=== PATIENT | male | born 1925 | race Caucasian/White ===

== ENCOUNTER 2016-03-20 09:41 | Inpatient (IN) | payer MEDICARE ==
[2016-03-20] MEDS ORDERED: BISACODYL 5 MG TABLET.DR PO PRN (12:40)
[2016-03-20] MEDS ORDERED: NA PHOS,M-B/NA PHOS,DI-BA 133 ML ENEMA RECTAL PRN (12:40)
[2016-03-20] MEDS ORDERED: NALOXONE 0.4 MG/ML 1 ML VIAL IV PRN (12:40)
[2016-03-20] MEDS ORDERED: MELATONIN 3 MG TABLET PO PRN (12:40)
[2016-03-20] MEDS ORDERED: LACTULOSE 20 GM/30 ML CUP PO PRN (12:40)
[2016-03-20 13:16] LABS: Basophils % (A) 0 %; CH 31.8; Eosinophils # (A) 0.1 k/uL (0-0.7); Eosinophils % (A) 0 %; HCT 32.6 % (39.0-53.0); HDW 2.85; HGB 11.1 gm/dL (13.0-17.5); Luc # (Auto) 0.33; Luc % (Auto) 2; Lymphocytes # (A) 0.7 k/uL (1.0-4.8); Lymphocytes % (A) 5 %; MCHC 33.9 g/dL (31.0-37.0); MCV 91.5 fL (80.0-100.0); Mean Platelet Volume 6.5; Monocytes # (A) 0.9 k/uL (0-1.0); Monocytes % (A) 7 %; Neutrophils # (A) 11.7 k/uL (1.3-7.7); Neutrophils % (A) 85 %; RBC 3.57 m/uL (4.30-5.90); RDW 13.3 % (11.5-15.5); WBC 13.6 k/uL (3.8-10.6); WBC (Perox) 14.96
[2016-03-20 13:27] LABS: Phosphorous 3.2 mg/dL (2.5-4.5); Potassium 4.6 mmol/L (3.5-5.1)
[2016-03-20 13:34] LABS: INR 1.1 (<1.1)
[2016-03-20] MEDS: HEPARIN SODIUM,PORCINE/D5W PMX 25,000 UNIT in DEXTROSE/WATER 1 500ML.BAG IV SCH (14:33)
[2016-03-20 15:00] LABS: Appearance,Urine Clear (Clear); Bacteria,Urine Rare /hpf; Bilirubin,Urine Negative (Negative); Glucose,Urine (UA) Negative (Negative); Ketones,Urine Negative (Negative); Leukocyte Esterase,Urine Moderate (Negative); Nitrite,Urine Negative (Negative); Particle Count 947; Protein,Urine 1+ (Negative); RBC,Urine 8 /hpf (0-5); Specific Gravity,Urine 1.011 (1.001-1.035); Squamous Epithelial Cell,Urine <1 /hpf (0-4); UA Billing (MACRO vs. MICRO) MICRO; Urobilinogen,Urine <2.0 mg/dL (<2.0); WBC,Urine 6 /hpf (0-5)
--- NOTE | 2016-03-20 16:33 | CONS ---
DATE OF CONSULTATION: CHIEF COMPLAINT: Not feeling well, atrial fibrillation. This is an 89-year-old gentleman known to me from my outpatient practice who has a history of sepsis with renal failure. He was almost about to go on dialysis, but his renal functions have improved. He went to [facility] primarily with constipation and was found to be in atrial fibrillation, for which he was started on IV heparin and transferred and admitted to [facility]. EKG shows atrial fibrillation with poor R-wave progression and nonspecific ST-T wave changes. Past medical history is significant for: 1. Chronic atrial fibrillation. 2. Chronic renal insufficiency. 3. Hypertension. Current medications include: 1. Flomax. 2. Norvasc 5 daily. 3. Aspirin. 4. Coreg 6.25 b.i.d. 5. Lasix 40 daily. 6. Ultram. 7. Proscar. 8. Fish oil. ALLERGIES: STATINS. FAMILY HISTORY: Negative for premature coronary artery disease. SOCIAL HISTORY: Negative for current smoking, EtOH abuse or drug abuse. REVIEW OF SYSTEMS: HEENT: Unremarkable. CARDIAC: As described above. RESPIRATORY: Negative. GI: Negative. GENITOURINARY: Significant for end-stage renal disease. PSYCHOSOCIAL: Negative. ENDOCRINE: Negative. RHEUMATOLOGIC: Negative. DERMATOLOGY: Negative. CONSTITUTIONAL: Negative. ONCOLOGICAL: Negative. Rest of the system review is not relevant. On exam, afebrile. Heart rate is 85. Blood pressure 166/80. Respiratory rate is 18. Chest exam reveals good air entry bilaterally. Heart exam reveals first and second heart sounds, irregular rhythm, and a systolic murmur at the left lower sternal border. Abdomen is soft. Examination of extremities did not reveal any edema. Peripheral pulses are felt. ASSESSMENT: 1. Chronic atrial fibrillation with controlled ventricular rate. 2. Chronic renal failure. 3. Hypertension. PLAN: Will optimize antihypertensive therapy, obtain a 2-D echo to document his LV function, continue the IV heparin and start him on Coumadin and see how he does and decide on further course of action.
[2016-03-20] MEDS: FAMOTIDINE 20 MG TAB PO SCH (16:59)
[2016-03-20 17:52] LABS: Creatine Kinase 67 U/L (55-170)
[2016-03-20] MEDS ORDERED: WARFARIN 5 MG TAB PO ONE (18:00)
[2016-03-20 18:05] LABS: Creatine Kinase MB 2.1 ng/mL (0.0-2.4); Troponin I <0.012 ng/mL (0.000-0.034)
--- NOTE | 2016-03-20 18:35 | HP ---
DATE OF ADMISSION: CHIEF COMPLAINT: Difficulty in breathing and abdominal pain. HISTORY OF PRESENT ILLNESS: This is an 89-year-old gentleman with history a previous episode of sepsis and perforated viscus in the past; at that time was noted to have myocardial infarction, went into [facility] initially with complaints of urinary retention and abdominal pain. Patient was noted to have urinary retention, as stated above, and a Bloom catheter was inserted thereafter. Patient underwent a CT scan of the abdomen, was noted to have increased fecal material in the gut. On an EKG patient was also noted to have atrial fibrillation with a poor R-wave progression and a mild troponin leak. Patient was thereafter transferred to our hospital after I had a discussion with the admitting physician in [facility]. During the time of my examination period, patient denies having any headaches, blurry vision, muscle weakness, chest pain, difficulty in breathing. Patient only complaints of abdominal pain. Patient apparently underwent manual fecal disimpaction and soapsuds enemas which were not successful and patient ( ) Past medical history includes: 1. Previous history of sepsis. 2. Myocardial infarction. 3. History of hypertension. 4. Dyslipidemia. 5. 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 SURGICAL HISTORY: Complicated abdominal surgery in the past. SOCIAL HISTORY: Remote smoking history. Denies alcohol or illicit drug use. REVIEW OF SYSTEMS: Fourteen-point review of system was done; none pertinent other than above-mentioned in the HPI. FAMILY HISTORY: Not pertinent to the current admission. No history of strokes or myocardial infarction. PHYSICAL EXAMINATION: VITAL SIGNS: Temperature 96.8, heart rate 69, respiratory rate 18, blood pressure 146/76. Saturating 98% on room air. GENERAL APPEARANCE: Alert and oriented x3. No distress. HEAD: Atraumatic, normocephalic. Pupils are equal, round and reactive to light and accommodation. 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 LUNGS: Good air entry. Clear to auscultation. HEART: Irregularly irregular. No murmurs appreciated. ABDOMEN: Soft, nontender. No organomegaly. LOWER EXTREMITIES: No edema appreciated. NEUROLOGIC: No focal motor or sensory deficits noted. LABORATORY DATA: White count 13.6, hemoglobin 11.1, hematocrit 32.6, platelets of 267. Sodium 138, potassium 4.6, chloride 102, bicarb 25. BUN 45, creatinine of 2.08. ASSESSMENT AND PLAN: 1. New-onset atrial fibrillation. 2. Acute urinary retention. 3. Acute on chronic kidney disease; appears to be secondary to dehydration. 4. Constipation. 5. History of myocardial infarction. PLAN: Patient will be started on IV heparin. Consult Cardiology. Medications were reconciled. Patient's BPH medication Flomax will be restarted. Thereafter, a trial of Bloom catheter removal will be attempted tomorrow. Likely it is secondary to significant constipation. There is no other history or symptomatology suggestive of a urinary tract infection; however, if patient's white count increases overnight, will consider placing the patient on antibiotics empirically to cover for Gram-negative organisms. This was discussed with the family. Echocardiogram, 2-D and TSH were also ordered.
[2016-03-21 06:53] LABS: INR 1.2 (<1.1); Partial Thromboplastin Time 93.7 sec (22.0-30.0); Prothrombin Time 11.9 sec (9.0-12.0)
[2016-03-21 07:00] LABS: Basophils % (A) 0 %; CHCM 35.1; Eosinophils # (A) 0.2 k/uL (0-0.7); Eosinophils % (A) 2 %; HCT 30.8 % (39.0-53.0); HDW 2.81; HGB 10.6 gm/dL (13.0-17.5); Luc # (Auto) 0.36; Luc % (Auto) 3; Lymphocytes # (A) 1.1 k/uL (1.0-4.8); Lymphocytes % (A) 11 %; MCH 31.6 pg (25.0-35.0); MCHC 34.6 g/dL (31.0-37.0); MCV 91.5 fL (80.0-100.0); Mean Platelet Volume 6.8; Monocytes # (A) 0.7 k/uL (0-1.0); Monocytes % (A) 7 %; Neutrophils # (A) 7.9 k/uL (1.3-7.7); Neutrophils % (A) 77 %; RBC 3.37 m/uL (4.30-5.90); RDW 13.4 % (11.5-15.5); WBC 10.4 k/uL (3.8-10.6); WBC (Perox) 10.39
[2016-03-21 07:01] LABS: Calcium 8.7 mg/dL (8.4-10.2); Potassium 4.1 mmol/L (3.5-5.1); Total Bilirubin 0.9 mg/dL (0.2-1.3); Total Protein 6.5 g/dL (6.3-8.2)
[2016-03-21] MEDS: amLODIPine 5 MG TAB PO SCH (09:51)
[2016-03-21] MEDS: FAMOTIDINE 20 MG TAB PO SCH (09:51)
[2016-03-21] MEDS: TAMSULOSIN 0.4 MG CAP.ER.24H PO SCH (09:52)
--- NOTE | 2016-03-21 10:28 | ECHOF ---
Referral Reason:atrial fibrillation MEASUREMENTS -------- HEIGHT: 180.3 cm WEIGHT: 66.7 kg BP: 166/81 RVIDd: 3.4 cm (< 3.3) IVSd: 1.1 cm (0.6 - 1.1) LVIDd: 4.9 cm (3.9 - 5.3) LVPWd: 1.3 cm (0.6 - 1.1) IVSs: 1.6 cm LVIDs: 3.8 cm LVPWs: 1.7 cm LA Diam: 3.5 cm (2.7 - 3.8) LAESV Index (A-L): 18.82 ml/m Ao Diam: 3.9 cm (2.0 - 3.7) AV Cusp: 2.3 cm (1.5 - 2.6) MV EXCURSION: 16.659 mm (> 18.000) MV EF SLOPE: 99 mm/s (70 - 150) EPSS: 1.3 cm MV E Madhu: 0.61 m/s MV DecT: 325 ms MV A Madhu: 0.86 m/s MV E/A Ratio: 0.71 AR PHT: 1290 ms FINDINGS -------- This was a technically adequate study. The left ventricular size is normal. There is mild concentric left ventricular hypertrophy. Overall left ventricular systolic function is mildly impaired with, an EF between 45 - 50 %. The right ventricle is mildly enlarged. Normal LA size by volume 22+/-6 ml/m2. The right atrium is normal in size. Aortic valve is trileaflet and is mildly thickened. There is mild aortic regurgitation. Mild mitral annular calcification present. Mild mitral regurgitation is present. The tricuspid valve appears structurally normal. No regurgitation noted The pulmonic valve was not well visualized. The aortic root is dilated measuring 3.9cm. There is no pericardial effusion. CONCLUSIONS -------- 1. This was a technically adequate study. 2. Mild mitral annular calcification present. 3. Mild mitral regurgitation is present. 4. The tricuspid valve appears structurally normal. 5. The pulmonic valve was not well visualized. 6. The aortic root is dilated measuring 3.9cm. 7. There is no pericardial effusion. 8. The left ventricular size is normal. 9. There is mild concentric left ventricular hypertrophy. 10. Overall left ventricular systolic function is mildly impaired with, an EF between 45 - 50 %. 11. The right ventricle is mildly enlarged. 12. Normal LA size by volume 22+/-6 ml/m2. 13. The right atrium is normal in size. 14. Aortic valve is trileaflet and is mildly thickened. 15. There is mild aortic regurgitation. PHONE MANAGER: Neelam Johnson RDCS
--- NOTE | 2016-03-21 14:21 | P.PN ---
Subjective This is a 89-year-old gentleman that is admitted to the hospital from [facility] due to complaints of abdominal pain. Patient was noted to have significant stool retention. Patient failed subset enemas and manual disimpaction. Patient was also noted to be in new onset atrial fibrillation at the other hospital and transferred here for ongoing care. Patient also was noted to have urinary retention which was attribute it to abdominal distention for mild bowel. Patient does have a history of BPH currently maintained on finasteride and Flomax. Today patient states to be improved. Had a large bowel movement overnight. A Bloom catheter discontinued and try will be done today. Denies having any chest pain, difficulty breathing, nausea, vomiting. Objective - Vital Signs Vital signs: Vital Signs Temp 96.1 F L 03/21/16 11:00 Pulse 71 03/21/16 11:00 Resp 20 03/21/16 11:00 BP 143/65 03/21/16 11:00 Pulse Ox 97 03/21/16 11:00 Intake & Output 03/20/16 03/21/16 03/21/16 18:59 06:59 18:59 Intake Total 180 681.036 343.48 Output Total 700 900 Balance 180 -18.964 -556.52 Weight 67 kg 67.3 kg Intake: IV 580 0.9% NS @ 20mL/hr 320 Heparin Sodium,Porcine/ 260 D5w Pmx 25,000 unit In Dextrose/Water 1 500ml. bag @ 12 UNITS/KG/HR 16. 08 mls/hr IV .Q24H [facility] Rx #:[id number] Intake, IV Titration 101.036 163.48 Amount Heparin Sodium,Porcine/ 101.036 163.48 D5w Pmx 25,000 unit In Dextrose/Water 1 500ml. bag @ 12 UNITS/KG/HR 16. 08 mls/hr IV .Q24H [facility] Rx #:[id number] Oral 180 0 180 Output: Urine 700 900 Uretheral (Bloom) 100 Other: Voiding Method Indwelling Catheter Indwelling Catheter Indwelling Catheter # Bowel Movements 2 - Exam Physical exam Gen. appearance oriented 3 in no distress Neck is supple no JVD Lungs good air entry clear to auscultation no rhonchi or wheezing Heart irregularly irregular no murmurs appreciated Abdomen is soft nontender no organomegaly bowel sounds are intact Neurologically cranial nerves II-12 grossly intact no focal motor or sensory deficits noted Skin no abnormalities appreciated - Labs CBC & Chem 7: 03/21/16 06:24 03/21/16 06:24 Labs: Abnormal Lab Results - Last 24 Hours (Table) 03/20/16 03/20/16 03/21/16 Range/Units 14:35 20:15 06:24 RBC 3.37 L (4.30-5.90) m/uL Hgb 10.6 L (13.0-17.5) gm/dL Hct 30.8 L (39.0-53.0) % Neutrophils # 7.9 H (1.3-7.7) k/uL APTT 68.5 H (22.0-30.0) sec BUN (9-20) mg/dL Creatinine (0.66-1.25) mg/dL Albumin (3.5-5.0) g/dL Urine Protein 1+ H (Negative) Urine Blood Trace H (Negative) Ur Leukocyte Esterase Moderate H (Negative) Urine RBC 8 H (0-5) /hpf Urine WBC 6 H (0-5) /hpf Urine Bacteria Rare H (None) /hpf 03/21/16 03/21/16 Range/Units 06:24 06:24 RBC (4.30-5.90) m/uL Hgb (13.0-17.5) gm/dL Hct (39.0-53.0) % Neutrophils # (1.3-7.7) k/uL APTT 93.7 H (22.0-30.0) sec BUN 37 H (9-20) mg/dL Creatinine 1.97 H (0.66-1.25) mg/dL Albumin 3.4 L (3.5-5.0) g/dL Urine Protein (Negative) Urine Blood (Negative) Ur Leukocyte Esterase (Negative) Urine RBC (0-5) /hpf Urine WBC (0-5) /hpf Urine Bacteria (None) /hpf Assessment and Plan Plan: For new onset atrial fibrillation controlled ventricular rate #2. Constipation #3 history of hypertension #4 history of myocardial infarction #5 compensated systolic heart failure #6 urinary retention #7 BPH Plan Bloom cath will be discontinued. If patient has urinary retention Reinserted the Bloom catheter and patient can be seen by Dr. Bellamy on an outpatient basis in 1 week. He is to continue Coumadin. However there is no need to wait for therapeutic INR prior to discharge.
[2016-03-21] MEDS: HEPARIN SODIUM,PORCINE/D5W PMX 25,000 UNIT in DEXTROSE/WATER 1 500ML.BAG IV SCH (14:51)
[2016-03-21] MEDS ORDERED: traMADol 50 MG TAB PO PRN (16:19)
[2016-03-21] MEDS ORDERED: NON-FORMULARY DRUG (Fish Oil/Dha/Epa [Fish Oil 1,200 Mg Fish Oil] 1 CAP) PO SCH (16:30)
[2016-03-21] MEDS: FOLIC ACID-VIT B COMPLEX-VIT C 1 CAP PO SCH (17:13)
[2016-03-21] MEDS: FUROSEMIDE 40 MG TAB PO SCH (17:13)
[2016-03-21] MEDS: ASPIRIN 325 MG TAB PO SCH (17:13)
[2016-03-21] MEDS: CARVEDILOL 6.25 MG TAB PO SCH (17:14)
[2016-03-21] MEDS: CALCIUM CARB-VIT D 500MG-200UN 1 EACH TAB PO SCH (17:14)
[2016-03-21] MEDS ORDERED: WARFARIN 5 MG TAB PO ONE (18:00)
[2016-03-21] MEDS ORDERED: HALOPERIDOL LACTATE 5 MG/ML 1 ML VIAL IM PRN (22:52)
[2016-03-21] MEDS ORDERED: QUEtiapine 25 MG TAB PO SCH (23:00)
[2016-03-22] MEDS: CARVEDILOL 6.25 MG TAB PO SCH ×2 (09:09→16:58)
[2016-03-22] MEDS: CALCIUM CARB-VIT D 500MG-200UN 1 EACH TAB PO SCH ×2 (09:09→16:59)
[2016-03-22] MEDS: FAMOTIDINE 20 MG TAB PO SCH (09:09)
[2016-03-22] MEDS: amLODIPine 5 MG TAB PO SCH (09:10)
[2016-03-22] MEDS: ASPIRIN 325 MG TAB PO SCH (09:10)
[2016-03-22] MEDS: FUROSEMIDE 40 MG TAB PO SCH (09:10)
[2016-03-22] MEDS: TAMSULOSIN 0.4 MG CAP.ER.24H PO SCH ×2 (09:11→17:00)
[2016-03-22] MEDS: FINASTERIDE 5 MG TAB PO SCH (09:11)
[2016-03-22] MEDS: FOLIC ACID-VIT B COMPLEX-VIT C 1 CAP PO SCH (11:33)
[2016-03-22 12:53] LABS: Appearance,Urine Clear (Clear); Bilirubin,Urine Negative (Negative); Glucose,Urine (UA) Negative (Negative); Ketones,Urine Negative (Negative); Leukocyte Esterase,Urine Negative (Negative); Nitrite,Urine Negative (Negative); PH, Urine 6.5 (5.0-8.0); Particle Count 474; Protein,Urine Trace (Negative); RBC,Urine <1 /hpf (0-5); Specific Gravity,Urine 1.008 (1.001-1.035); UA Billing (MACRO vs. MICRO) MICRO; Urobilinogen,Urine <2.0 mg/dL (<2.0); WBC,Urine 1 /hpf (0-5)
[2016-03-22] MEDS ORDERED: SODIUM CHLORIDE 0.9% 500 ML IV ONE (14:06)
[2016-03-22 15:20] LABS: INR 1.5 (<1.1); Prothrombin Time 14.3 sec (9.0-12.0)
--- NOTE | 2016-03-22 16:58 | P.PN ---
Subjective This is a 89-year-old gentleman that is admitted to the hospital from [facility] due to complaints of abdominal pain. Patient was noted to have significant stool retention. Patient failed subset enemas and manual disimpaction. Patient was also noted to be in new onset atrial fibrillation at the other hospital and transferred here for ongoing care. Patient also was noted to have urinary retention which was attribute it to abdominal distention for mild bowel. Patient does have a history of BPH currently maintained on finasteride and Flomax. Today patient states to be improved. Had a large bowel movement overnight. A Bloom catheter discontinued and try will be done today. Denies having any chest pain, difficulty breathing, nausea, vomiting. 03/22/2016 Patient apparently had a bad night. Patient was given a dose of haloperidol. Apparently was confused and agitated overnight. Patient however had urinary retention PVR was not checked. A Bloom catheter was reinserted today. Appears more appropriate. However is drowsy. Objective - Vital Signs Vital signs: Vital Signs Temp 96.7 F L 03/22/16 15:00 Pulse 93 03/22/16 15:00 Resp 20 03/22/16 15:00 BP 144/82 03/22/16 15:00 Pulse Ox 97 03/22/16 15:00 Intake & Output 03/21/16 03/22/16 03/22/16 18:59 06:59 18:59 Intake Total 715.67 845.89 Output Total 900 1175 600 Balance -184.33 -1175 245.89 Weight 65 kg Intake: IV 267 600 0.9% NS @ 20mL/hr 160 100 Heparin Sodium,Porcine/ 107 D5w Pmx 25,000 unit In Dextrose/Water 1 500ml. bag @ 12 UNITS/KG/HR 16. 08 mls/hr IV .Q24H [facility] Rx #:[id number] Sodium Chloride 0.9% 500 500 ml @ 250 mls/hr IV .Q2H ONE Rx#:[id number] Intake, IV Titration 268.67 245.89 Amount Heparin Sodium,Porcine/ 268.67 245.89 D5w Pmx 25,000 unit In Dextrose/Water 1 500ml. bag @ 12 UNITS/KG/HR 16. 08 mls/hr IV .Q24H [facility] Rx #:[id number] Oral 180 0 Output: Urine 900 1175 600 Straight 600 Uretheral (Bloom) 100 Other: Voiding Method Toilet Toilet Urinal Incontinent # Voids 1 - Exam Physical exam Gen. Answer some questions appropriately arousable. Neck is supple no JVD Lungs good air entry clear to auscultation no rhonchi or wheezing Heart irregularly irregular no murmurs appreciated Abdomen is soft nontender no organomegaly bowel sounds are intact Neurologically cranial nerves II-12 grossly intact no focal motor or sensory deficits noted Skin no abnormalities appreciated - Labs CBC & Chem 7: 03/21/16 06:24 03/21/16 06:24 Labs: Abnormal Lab Results - Last 24 Hours (Table) 03/22/16 03/22/16 03/22/16 Range/Units 07:58 07:58 12:30 PT 14.3 H (9.0-12.0) sec APTT 61.7 H (22.0-30.0) sec Urine Protein Trace H (Negative) Urine Blood Trace H (Negative) Microbiology - Last 24 Hours (Table) 03/22/16 12:30 Urine Culture - Preliminary Urine,Catheterized Assessment and Plan Plan: For new onset atrial fibrillation controlled ventricular rate #2. Constipation #3 history of hypertension #4 history of myocardial infarction #5 compensated systolic heart failure #6 urinary retention #7 BPH #8 acute delirium Plan Hold off on antipsychotics. Patient will be given melatonin. Discussed with the family to stay tonight . Continue Bloom catheter. Patient's Bloom catheter will not be discontinued for the next 7 days. Patient can follow up with urology thereafter. To continue Proscar and Flomax. Repeat PT/INR. Likely discontinue heparin thereafter.
[2016-03-22] MEDS: SODIUM CHLORIDE 0.9% 1,000 ML IV SCH (17:11)
[2016-03-22] MEDS ORDERED: WARFARIN 5 MG TAB PO ONE (18:00)
[2016-03-22] MEDS: HEPARIN SODIUM,PORCINE/D5W PMX 25,000 UNIT in DEXTROSE/WATER 1 500ML.BAG IV SCH (21:28)
[2016-03-23] MEDS: SODIUM CHLORIDE 0.9% 1,000 ML IV SCH (06:25)
[2016-03-23] MEDS: CARVEDILOL 6.25 MG TAB PO SCH (07:48)
[2016-03-23] MEDS: FINASTERIDE 5 MG TAB PO SCH (07:48)
[2016-03-23] MEDS: FAMOTIDINE 20 MG TAB PO SCH (07:48)
[2016-03-23] MEDS: amLODIPine 5 MG TAB PO SCH (07:48)
[2016-03-23] MEDS: TAMSULOSIN 0.4 MG CAP.ER.24H PO SCH (07:48)
[2016-03-23] MEDS: CALCIUM CARB-VIT D 500MG-200UN 1 EACH TAB PO SCH (07:48)
[2016-03-23] MEDS: ASPIRIN 325 MG TAB PO SCH (07:48)
[2016-03-23 07:51] VITALS: BP 151/80; PULSE 60; RESP 20; TEMP 96.8
--- NOTE | 2016-03-23 08:08 | XR ---
EXAMINATION TYPE: XR chest 1V portable DATE OF EXAM: 03/23/2016 8:02 AM HISTORY: Difficulty breathing. REFERENCE: NONE. FINDINGS: Heart size upper limits of normal. There is right basilar atelectasis. There are senescent changes within the lungs. There is free air under the right hemidiaphragm. IMPRESSION: FREE INTRAPERITONEAL AIR. A [employer] message has been communicated to Norris Monroy MD via the [employer] system on 03/23/2016 8:06 AM, Message ID [id number].
[2016-03-23 08:51] LABS: Basophils % (A) 0 %; CH 31.7; CHCM 34.1; Eosinophils # (A) 0.3 k/uL (0-0.7); Eosinophils % (A) 4 %; HCT 30.7 % (39.0-53.0); HDW 2.77; HGB 10.1 gm/dL (13.0-17.5); Luc # (Auto) 0.26; Luc % (Auto) 3; Lymphocytes % (A) 12 %; MCH 30.5 pg (25.0-35.0); MCHC 32.8 g/dL (31.0-37.0); MCV 93.2 fL (80.0-100.0); Mean Platelet Volume 6.7; Monocytes # (A) 0.7 k/uL (0-1.0); Monocytes % (A) 8 %; Neutrophils # (A) 5.7 k/uL (1.3-7.7); Neutrophils % (A) 72 %; RBC 3.29 m/uL (4.30-5.90); RDW 13.4 % (11.5-15.5); WBC (Perox) 8.45
[2016-03-23 09:00] LABS: Calcium 8.5 mg/dL (8.4-10.2); Potassium 4.6 mmol/L (3.5-5.1); Total Bilirubin 0.8 mg/dL (0.2-1.3); Total Protein 6.4 g/dL (6.3-8.2)
[2016-03-23 09:26] LABS: INR 2.4 (<1.1); Partial Thromboplastin Time 71.9 sec (22.0-30.0); Prothrombin Time 22.6 sec (9.0-12.0)
--- NOTE | 2016-03-23 10:12 | CT ---
EXAMINATION TYPE: CT abdomen pelvis wo con DATE OF EXAM: 03/23/2016 9:33 AM COMPARISON: Previous study dated 05/22/2014 HISTORY: Free intraperitoneal air. TECHNIQUE: Helical acquisition through the abdomen and pelvis was obtained without oral or intravenou s contrast. The data was reformatted in axial, coronal and sagittal projections. CT DLP: 385 mGycm Automated exposure control for dose reduction was used. FINDINGS: There is a small right-sided effusion and a smaller left-sided effusion. There is bibasilar atelectasis, greater on the right than the left. There are calcified pleural plaques bilaterally. No pericardial fluid is seen. The heart is not enlarged. There is aneurysmal dilatation of the thoracic aorta. The ascending aorta measures 4.2 cm. The distal descending thoracic aorta measures 3.4 cm. At the level of the aortic hiatus, the aorta measures 3.4 cm. There is a partially calcified infrarenal abdominal aortic aneurysm measuring 4.6 cm. Previously this measured 4.2 cm. 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 Within the abdomen, I do not see evidence of free intraperitoneal air. The air visualized on the anthony ent's chest x-ray is secondary to colonic interposition.. The liver and gallbladder are normal. There is evidence of old granulomatous disease of the spleen. The pancreas is unremarkable. Both adrenal glands are normal. There is a 3.7 mm, nonobstructing calculus in the posterior lower pole calyx of the left kidney. The right kidney is unremarkable. There is no significant retroperitoneal, iliac or inguinal adenopathy. There is a Bloom catheter within the bladder. There is no significant diverticular change and there is no radiographic evidence of diverticulitis. The appendix is not visualized. Small bowel loops are normal. There is no evidence of free fluid or free air. There are degenerative changes in both hips. There is diffuse degenerative disc disease, hypertrophic spondylosis and facet arthropathy within the spine. There is a superior endplate infraction of L3. T his is stable. IMPRESSION: 1. THORACIC, ABDOMINAL AND ILIAC ANEURYSMS DESCRIBED. 2. SMALL, BILATERAL EFFUSIONS, GREATER ON THE RIGHT THAN THE LEFT. 3. EVIDENCE OF OLD WITH SPASTICITY EXPOSURE. 4. NO EVIDENCE OF FREE AIR. 5. 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 6. 3.7 MM, NONOBSTRUCTING CALCULUS IN THE POSTERIOR LOWER POLE CALYX OF THE LEFT KIDNEY. 7. DEGENERATIVE CHANGES WITHIN THE SPINE WELL A STABLE SUPERIOR ENDPLATE INFRACTION OF L3.
--- NOTE | 2016-03-23 11:36 | CDI ---
In responding to this query, please exercise your independent professional judgment. The [facility] Coding Staff and Clinical Documentation Specialists appreciate your assistance in clarifying documentation, maintaining compliance with coding guidelines, accurately documenting patients condition and capturing severity of illness. The fact that a question is asked does not imply that any particular answer is desired or expected. Communication forms are a method of clarifying documentation and are not made part of the Legal Health Record. Thank you in advance for your clarification. Last Revision, April 2015 Cristian Becerra [address] [facility] [place] [address] Documentation Clarification Form Date: 03/23/2016 11:21:00 AM From: Paulette Ramsey Admit Date: 03/20/2016 11:02:00 AM Patient Name: Christos Shipman Visit Number: [id number] Discharge Date: Dr. Andrzej Rome Ruelas: 89 yo male, transfer from [facility], presented with urinary retention & abdominal pain. Noted to have Atrial Fibrillation with a poor R- wave progression and a mild troponin leak. Per the attending's progress notes: 03/21 & 03/22: compensated systolic heart failure. 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 Clinical Indicators: VS: T 96.7*, P 88-69 (irregular), R 16-18, BP 166/81, PO 99 ra LAB: BUN 45, Cr 2.08, Glucose 121. Troponin's wnl. Chest X Ray: Heart size upper limits of normal, right basilar atelectasis. Treatment: IV Heparin, home dose po Lasix 40 mg daily, Aspirin, Coumadin Consults: Cardiology (A Fib) In your professional opinion, can you please clarify the acuity and type of CHF if known? Acute Chronic AND o Systolic o Diastolic o Systolic and Diastolic o Unable to determine o Other, please specify If known, please specify if Heart Failure is due to: o Hypertension o Rheumatic Fever Please document in your progress notes and discharge summary in order to capture severity of illness and risk of mortality. Include clinical findings that support your diagnosis. FYI: Press F11 to launch patient chart. Place X here if this finding has no clinical significance, is not applicable or if you are not able to provide any additional documentation. Thank You. REBECA
--- NOTE | 2016-03-23 11:54 | P.DS ---
Providers Date of admission: 03/20/16 11:02 Attending physician: Andrzej Ruelas MD Consults: 03/20/16 12:41 Consult Physician Urgent Consulting Provider: Norris Monroy Consult Reason/Comments: atrial fibrillation Do you want consulting provider notified?: Yes Primary care physician: Stated None Hospital Course: This is a 89-year-old gentleman that is admitted to the hospital from [facility] due to complaints of abdominal pain. Patient was noted to have significant stool retention. Patient failed subset enemas and manual disimpaction. Patient was also noted to be in new onset atrial fibrillation at the other hospital and transferred here for ongoing care. Patient also was noted to have urinary retention which was attribute it to abdominal distention for mild bowel. Patient does have a history of BPH currently maintained on finasteride and Flomax. Today patient states to be improved. Had a large bowel movement overnight. A Bloom catheter discontinued and try will be done today. Denies having any chest pain, difficulty breathing, nausea, vomiting. 03/22/2016 Patient apparently had a bad night. Patient was given a dose of haloperidol. Apparently was confused and agitated overnight. Patient however had urinary retention PVR was not checked. A Bloom catheter was reinserted today. Appears more appropriate. However is drowsy. Day of discharge Patient is awake denies having any chest pain dizziness nausea vomiting or diarrhea. he is answering questions appropriately today. Physical exam Gen. Improved alert oriented 3. Neck is supple no JVD Lungs good air entry clear to auscultation no rhonchi or wheezing Heart irregularly irregular no murmurs appreciated Abdomen is soft nontender no organomegaly bowel sounds are intact Neurologically cranial nerves II-12 grossly intact no focal motor or sensory deficits noted Skin no abnormalities appreciated Assessment and Plan Plan: For new onset atrial fibrillation controlled ventricular rate #2. 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 Patient is discharged home to follow-up with in one week. To continue Bloom catheter till then. Follow-up with the patient's primary care physician in one week for PT/INR. Plan - Discharge Summary New Discharge Prescriptions: Melatonin 3 mg PO HS PRN #30 tablet PRN Reason: Insomnia Sennosides [Senna] 8.6 mg PO BID #60 tablet Warfarin [Coumadin] 3 mg PO DAILY #30 tab Discharge Medication List Aspirin 325 mg PO DAILY 03/20/16 [History] B Complex & C No.20/Folic Acid [Nephrocaps Softgel] 1 mg PO DAILY 03/20/16 [ History] Calcium Carbonate/Vitamin D3 [Calcium 600-Vit D3 400 Caplet] 1 tab PO BID [History] Carvedilol [Coreg] 6.25 mg PO BID 03/20/16 [History] Finasteride [Proscar] 5 mg PO DAILY 03/20/16 [History] Fish Oil/Dha/Epa [Fish Oil 1,200 mg Fish Oil] 1 cap PO DAILY 03/20/16 [History] Furosemide [Lasix] 40 mg PO DAILY 03/20/16 [History] Sodium Bicarbonate 325 mg PO HS 03/20/16 [History] Tamsulosin HCl [Flomax] 0.4 mg PO DAILY 03/20/16 [History] amLODIPine [Norvasc] 5 mg PO HS 03/20/16 [History] traMADol HCL [Ultram] 50 mg PO TID PRN 03/20/16 [History] Famotidine [Pepcid] 20 mg PO DAILY tab 03/23/16 [Rx] Lactulose [Cephulac] 20 gm PO DAILY PRN #0 ml 03/23/16 [Rx] Melatonin 3 mg PO HS PRN #30 tablet 03/23/16 [Rx] Sennosides [Senna] 8.6 mg PO BID #60 tablet 03/23/16 [Rx] Warfarin [Coumadin] 3 mg PO DAILY #30 tab 03/23/16 [Rx] Follow up Appointment(s)/Referral(s): Sixto Pack MD [STAFF PHYSICIAN] - 1 Week Norris Monroy MD [STAFF PHYSICIAN] - 1 Week Ambulatory/Diagnostic Orders: Complete Blood Count w/diff [LAB.AMB] Location: Determined By Patient Miscellaneous Lab Order [LAB.AMB] Location: Determined By Patient Patient Instructions/Handouts: Atrial Fibrillation (DC), Benign Prostatic Hypertrophy (DC) Activity/Diet/Wound Care/Special Instructions: [facility] [phone] Cardiac diet. Discharge Disposition: HOME SELF-CARE
[2016-03-23] MEDS ORDERED: WARFARIN 5 MG TAB PO ONE (18:00)
== END 2016-03-23 13:44 | disposition home or self-care (01) | DRG 308 ==
LOC: 6SEL 11:02 → 4MS4W 03-21 17:05
PROVIDERS: ADMIT Internal Medicine; ATTEND Internal Medicine
DX: I48.2 Chronic atrial fibrillation (principal); N18.6 End stage renal disease; N17.9 Acute kidney failure, unspecified; I50.22 Chronic systolic (congestive) heart failure; I13.0 Hypertensive heart and chronic kidney disease with heart failure and stage 1 through stage 4 chronic kidney disease, or unspecified chronic kidney disease; I71.2 Thoracic aortic aneurysm, without rupture; G62.9 Polyneuropathy, unspecified; M48.02 Spinal stenosis, cervical region; E86.0 Dehydration; E78.5 Hyperlipidemia, unspecified; N20.0 Calculus of kidney; I25.2 Old myocardial infarction; K59.00 Constipation, unspecified; I71.4 Abdominal aortic aneurysm, without rupture; N40.1 Benign prostatic hyperplasia with lower urinary tract symptoms; R33.8 Other retention of urine; Z87.891 Personal history of nicotine dependence; Z79.899 Other long term (current) drug therapy; Z79.82 Long term (current) use of aspirin
CPT/HCPCS: 71010; 74176; 80053; 81001; 82550; 82553; 84100; 84443; 84484; 85025; 85610; 85730; 87086; 93306